=== PATIENT | male | born 1950 | race Native Hawaiian/Other Pacific Islander ===

== ENCOUNTER 2024-07-16 18:13 | Inpatient (IN) | payer MEDICARE, SELFPAY ==
--- NOTE | ~2024-07-16 | XR_ITS ---
Portable chest x-ray Comparison: None Clinical History: Dyspnea Findings: There is extensive hazy airspace disease of the left lung base. Right lung clear. Cardiom ediastinal silhouette is mildly prominent, with pacemaker device. Bones and soft tissues are unremark able. Impression: Left basilar pneumonia. Pacemaker device. Reviewed, dictated and finalized at [facility]. Impression: Left basilar pneumonia. Pacemaker device.
--- NOTE | ~2024-07-16 | CT_ITS ---
EXAMINATION: CT diagnostic chest wo con DATE: 07/17/2024 09:09 INDICATION: Pneumonia TECHNIQUE: Computed tomography (CT) of the chest was performed without intravenous contrast. Addition al 3D reconstructions utilizing coronal maximum intensity projection (MIP) were performed. Automated exposure control and iterative reconstruction technique were employed. The dose-length product was 22 7.31 mGy-cm. COMPARISON: None FINDINGS: Moderate upper lung predominant emphysema. There is consolidation without significant volume loss thr oughout the left lower lobe consistent with pneumonia. Mild dependent atelectasis in the right lower lobe. No pulmonary edema or pleural effusion. Heart size is normal. Small pericardial effusion. Ather osclerotic coronary artery calcified lesions and likely coronary artery stenting. Dual lead pacemaker /AICD seen with single atrial lead terminating at the atrial appendage and 2 ventricular leads termin ating near the apex of the right ventricle, one of which is presumably disconnected. Thoracic aorta i s normal in caliber. No pathologically enlarged thoracic lymphadenopathy. Bilateral gynecomastia. Par tially visualized abdominal aortic endoluminal stent grafting beginning near the level of the renal a rteries. Cholecystectomy clips the gallbladder fossa. There are bridging osteophytes at multiple leve ls in the lower thoracic and upper lumbar spine consistent with diffuse idiopathic skeletal hyperosto sis (DISH). IMPRESSION: 1. Left lower lobe pneumonia. 2. Small pericardial effusion. Reviewed, dictated and finalized at location B.
[2024-07-16 18:32] VITALS: BP 118/73; PULSE 111; RESP 20; TEMP 36.7; O2SAT 92
[2024-07-17] VITALS (61 sets, daily range): BP systolic 101–137; BP diastolic 64–85; PULSE 71–120; RESP 19–48; TEMP 36.2–39; O2SAT 81–100; BMI 23.0
--- NOTE | 2024-07-17 02:08 | ECG_ITS ---
Test Date: 2024-07-17 04:23:04 Measurements Intervals [place] Rate: 88 P: 49 HI: 203 QRS: 114 QRSD: 161 T: -9 QT: 417 QTc: 506 Interpretive Statements SINUS RHYTHM WITH OCCASIONAL VENTRICULAR PREMATURE COMPLEXES RIGHT BUNDLE BRANCH BLOCK LEFT POSTERIOR FASCICULAR BLOCK BASELINE ARTIFACT- I, II, III, AVR, AVL, V1-V4 ABNORMAL ECG No previous ECG available for comparison Electronically Signed On 07-17-2024 06:49:27 CDT by Harris Ray D.O.
[2024-07-17 02:37] LABS: Alveolar/Arterial O2 Gradient 121.3 mmHg; Base Excess ABG -5.4 mEq/l (+/-2.0); Fractional Inspired Oxygen 28 %; HCO3 ABG 15.6 mEq/l (22.0-26.0); Oxygen Content ABG 18.3 %vol (16.0-22.0); Oxygen Saturation ABG 90.7 % (95.0-100.0); PO2 ABG 53.2 mmHg (80.0-100.0); pH ABG 7.482 (7.350-7.450)
[2024-07-17 02:40] LABS: PCO2 ABG 21.3 mmHg (35.0-45.0)
[2024-07-17 02:41] LABS: Device NASAL CANNULA; Modified Allen's Test Pass; Oxyhemoglobin 86.8 % THb (90.0-100.0); Site Drawn LEFT RADIAL
[2024-07-17 02:42] LABS: Basophils Absolute Auto 0.1 K/mm3 (0.0-0.1); Basophils Percent Auto 0.4 % (0.2-1.2); Hematocrit 44.5 % (42.0-52.0); Hemoglobin 15.6 g/dL (14.0-18.0); Immature Granulocyte Absolute 0.32 K/mm3 (0.00-0.031); Immature Granulocyte Percent A 1.3 % (0-0.5); Lymphocytes Absolute Auto 0.56 K/mm3 (0.9-3.2); Lymphocytes Percent Auto 2.2 % (18.3-44.2); Mean Corpuscular HGB Conc 35.1 g/dl (32-36); Mean Corpuscular Hemoglobin 32.7 pg (26-34); Mean Corpuscular Volume 93.3 fl (80-100); Mean Platelet Volume 10.6 fl (7.4-10.4); Monocytes Absolute Auto 0.6 K/mm3 (0.1-0.6); Monocytes Percent Auto 2.4 % (2.6-8.5); Neutrophils Absolute Auto 23.5 K/mm3 (1.3-6.7); Neutrophils Percent Auto 93.7 % (45.5-73.1); Platelet Count Result 220 k/mm3 (150-375); Red Blood Count 4.77 M/mm3 (4.6-6.20); Red Cell Distribution Width 13.9 % (11.5-14.5); White Blood Count 25.1 K/mm3 (4.5-10.0)
[2024-07-17 02:58] LABS: INR 1.1; Prothrombin Time 14.7 Seconds (11.1-14.7)
[2024-07-17 02:59] LABS: Partial Thromboplastin Time 31.3 Seconds (22.3-36.8)
[2024-07-17 03:01] LABS: Lactic Acid Reflex 2.5 mmol/L (0.7-2.0)
[2024-07-17 03:15] LABS: Procalcitonin 43.1 ng/mL
[2024-07-17 03:18] LABS: Influenza A QL RT-PCR Negative (Negative); Influenza B QL RT-PCR Negative (Negative); RSV RNA, RT-PCR Negative (Negative); SARS-CoV-2 RNA PCR Negative (Negative)
--- NOTE | 2024-07-17 03:29 | ED.GENADULT ---
HPI - General Adult General Chief complaint: Shortness of Breath/Dyspnea Stated complaint: fever, sob, not eating Time Seen by Provider: 07/17/24 01:57 History of Present Illness HPI narrative: patient is a 74-year-old gentleman who presents emergency department with chief complaint of shortness of breath. The patient has prior history of COPD is not on home oxygen of a for the last week has been feeling sick patient has had decreased appetite eyes has had some loose bowel movements and a cough. Patient was 88% whenever came in from triage Related Data Allergies Allergy/AdvReac Type Severity Reaction Status Date / Time No Known Allergies Allergy Unknown Verified 07/16/24 18:41 NKDA Allergy Unknown Unknown Uncoded 07/16/24 18:41 NKFA Allergy Unknown Unknown Uncoded 07/16/24 18:41 Review of Systems Review of Systems: A 10 system review of systems was completed on the patient and is negative except for what is stated in the HPI. Nursing and ancillary documentation was reviewed. PMFSH Social History Social History Alcohol intake: current Exam Narrative: GENERAL: Ill-appearing, well-nourished, and in no acute distress. HEAD: Normocephalic, atraumatic. EYES: PERRLA and EOMI. ENT: Nares clear, no rhinorrhea or epistaxis. Mucous membranes moist. NECK: Supple. CHEST: rhonchi to auscultation. No respiratory distress. HEART: Regular rate and rhythm. No murmur heard. Normal peripheral pulses. ABDOMEN: Soft, nontender, nondistended, normal active bowel sounds. EXTREMITIES: Normal range of motion. No edema. SKIN: Warm, dry, no rash. NEURO: No focal deficits. Alert and oriented x3. PSYCH: Normal mood and affect. Course Vital Signs Vital signs: Vital Signs Temperature 36.7 C 07/16/24 18:32 Pulse Rate 111 H 07/16/24 18:32 Respiratory Rate 20 07/16/24 18:32 Blood Pressure 118/73 07/16/24 18:32 Pulse Oximetry 92 07/16/24 18:32 Oxygen Delivery Nasal Cannula 07/16/24 18:32 Oxygen Flow Rate 3 07/16/24 18:32 Temperature 36.5 C 07/17/24 02:00 Pulse Rate 94 07/17/24 02:02 Respiratory Rate 39 H 07/17/24 02:00 Blood Pressure 137/83 07/17/24 02:00 Pulse Oximetry 90 07/17/24 04:12 Oxygen Delivery Non-Rebreather Mask 07/17/24 04:12 Oxygen Flow Rate 10 07/17/24 04:12 Medical Decision Making MDM Narrative Medical decision making narrative: differential diagnosis includes pneumonia, viral illness, sepsis laboratory studies showed a white count of 25.1 lactic acid was slightly elevated at 2.5 COVID flu RSV are negative procalcitonin is 43.1 blood cultures were obtained the patient was started on Rocephin Zithromax as chest x-ray did show a left-sided infiltrate Vital Signs Vital Signs: Vital Signs Temperature 36.7 C 07/16/24 18:32 Pulse Rate 111 H 07/16/24 18:32 Respiratory Rate 20 07/16/24 18:32 Blood Pressure 118/73 07/16/24 18:32 Pulse Oximetry 92 07/16/24 18:32 Oxygen Delivery Nasal Cannula 07/16/24 18:32 Oxygen Flow Rate 3 07/16/24 18:32 Temperature 36.5 C 07/17/24 02:00 Pulse Rate 94 07/17/24 02:02 Respiratory Rate 39 H 07/17/24 02:00 Blood Pressure 137/83 07/17/24 02:00 Pulse Oximetry 90 07/17/24 04:12 Oxygen Delivery Non-Rebreather Mask 07/17/24 04:12 Oxygen Flow Rate 10 07/17/24 04:12 Lab Data 07/17/24 02:30 07/17/24 03:30 Labs: Lab Results 07/17/24 07/17/24 Range/Units 02:30 03:30 WBC 25.1 H (4.5-10.0) K/mm3 RBC 4.77 (4.6-6.20) M/mm3 Hgb 15.6 (14.0-18.0) g/dL Hct 44.5 (42.0-52.0) % MCV 93.3 (80-100) fl MCH 32.7 (26-34) pg MCHC 35.1 (32-36) g/dl RDW 13.9 (11.5-14.5) % Plt Count 220 (150-375) k/mm3 MPV 10.6 H (7.4-10.4) fl Immature Gran % (Auto) 1.3 H (0-0.5) % Neut % (Auto) 93.7 H (45.5-73.1) % Lymph % (Auto) 2.2 L (18.3-44.2) % [place] % (
[2024-07-17 03:46] LABS: Alanine Aminotransferase 55 U/L (6-50); Albumin Level 3.9 g/dL (3.5-5.1); Alkaline Phosphatase 118 U/L (38-126); Anion Gap 16 mmol/L (4-12); Aspartate Amino Transferase 98 U/L (17-59); Bilirubin,Total 1.7 mg/dL (0.2-1.3); Blood Urea Nitrogen 87 mg/dL (9-20); Calcium 8.8 mg/dL (8.4-10.2); Carbon Dioxide 19 mmol/L (22-30); Chloride 100 mmol/L (98-107); Estimated CRCL calculation 16 ml/min; Estimated Glomerular Filt Rate 15; Glucose 121 mg/dL (65-110); Lipase 87 U/L (23-300); Magnesium 2.7 mg/dL (1.6-2.3); Potassium 4.1 mmol/L (3.4-5.0); Sodium 135 mmol/L (137-145)
[2024-07-17 04:06] LABS: NT Pro B Type Natriuretic Pept 25300 pg/mL (19.9-100)
[2024-07-17] MEDS: AZITHROMYCIN 500 MG/NS 250 ML 500 MG/250 ML BAG 250 MG IVPB (04:10)
[2024-07-17] MEDS: SODIUM CHLORIDE 0.9% IV 1,000 ML 999 ML IV CONT (04:11)
--- NOTE | 2024-07-17 05:32 | PC.NURSE ---
temp pascual placed at this time, ua sent to lab.
[2024-07-17 05:41] LABS: Reflex Lactic Acid Yes or No Add Lactic
[2024-07-17 05:50] LABS: Add Urine Microscopic? YES; Appearance Urine Cloudy (Clear); Bacteria Urine None Seen /hpf; Bilirubin Urine Negative (Negative); Blood Urine 2+ (Negative); Color Urine Dark Yellow (Yellow); Glucose Urine UA Negative (Negative); Ketones Urine Trace mg/dL (Negative); Leukocyte Esterase Ur Negative LEU/UL (Negative); Nitrate Urine Negative (Negative); Protein Urine 2+ mg/dL (Negative); RBC Urine 0-2 /hpf (0-2); Specific Grav Ur 1.018 (1.001-1.035); Squamous Epithelial Cell Urine Occasional /hpf (Few); WBC Urine 0-5 /hpf (0-3)
--- NOTE | 2024-07-17 06:00 | ECG_ITS ---
Test Date: 2024-07-17 06:05:29 Measurements Intervals [place] Rate: 86 P: 60 LA: 199 QRS: 124 QRSD: 162 T: -7 QT: 417 QTc: 501 Interpretive Statements SINUS RHYTHM RIGHT BUNDLE BRANCH BLOCK LEFT POSTERIOR FASCICULAR BLOCK BASELINE ARTIFACT- I, III, AVR, AVF, V1 ABNORMAL ECG Compared to ECG 07/17/2024 04:23:04 NO SIGNIFICANT CHANGE Electronically Signed On 07-17-2024 06:54:47 CDT by Harris Ray D.O.
[2024-07-17] MEDS: ACETAMINOPHEN 650 MG SUPPOSITORY RECTAL (06:06)
[2024-07-17 06:51] LABS: Lactic Acid 1.3 mmol/L (0.7-2.0)
[2024-07-17] MEDS: ASPIRIN 81 MG CHEWABLE TABLET PO (08:17)
[2024-07-17] MEDS: IPRATROPIUM 0.5 MG/ALBUTEROL SULFATE 2.5 MG AMPUL.NEB 3 ML INHALATION ×3 (09:45→20:37)
--- NOTE | 2024-07-17 10:06 | PC.NURSE ---
talked to [facility] for patient transfer. RN will call back with bed assignment.
--- NOTE | 2024-07-17 10:33 | PM.TDS ---
Transfer Discharge Sum: Prov Provider Date of admission: 07/17/24 09:11 Primary care physician: Gordon Hollis, Admitting clinician: Umu Linder MD Consults: 07/17/24 05:05 Consult to Physician Routine Comment: Consulting Provider: call circuit worker/MD group to consult: cardiology Reason for consultation: elevated troponin, CHF Has provider been notified: No Consult to Physician Routine Comment: Consulting Provider: call circuit worker/MD group to consult: nephrology Reason for consultation: JUNAID with creatinine 4.0 Has provider been notified: No 07/17/24 08:55 Consult to Physician Routine Comment: Consulting Provider: call circuit worker/MD group to consult: Dr. Daigle Reason for consultation: Elevated Troponin Has provider been notified: No Receiving physician/facility: DS: Admitting Diagnosis Discharge Date 07/17/2024 Admitting Diagnosis COPD, pneumonia DS: Discharge Diagnosis Discharge Diagnosis (1) Community acquired pneumonia: Code(s): J18.9 - Pneumonia, unspecified organism Status: Acute (2) Leukocytosis: Code(s): D72.829 - Elevated white blood cell count, unspecified Status: Acute (3) Acute hypoxic respiratory failure: Code(s): J96.01 - Acute respiratory failure with hypoxia Status: Acute (4) Elevated troponin: Code(s): R79.89 - Other specified abnormal findings of blood chemistry Status: Acute (5) JUNAID (acute kidney injury): Code(s): N17.9 - Acute kidney failure, unspecified Status: Acute Plan Patient is a 74-year-old presented to the emergency department complaining of shortness of breath. The history has been obtained from his Krysta since the patient is on BiPAP. For past 1 week patient has not been feeling well, not communicating, incoherent, blurry vision, eating less and not drinking well. Patient has extensive cardiac history, reconstruction of the aorta 2014 due to aneurysm, patient also has 9-10 stents, defibrillator which was exchanged in about a year ago. Patient follows up with the director sports at [facility]. Patient also recently started having gout and reduced his alcohol. Patient has underlying COPD. And stop smoking from 2014. denies any diabetes mellitus or kidney disease. Patient is currently on the BiPAP with a setting of 12 / 7, WBC 25.1, chest x-ray and CT showing left lobar pneumonia and small pericardial effusion. Currently patient is on ceftriaxone and Rocephin. Patient is not on any vasopressor. Patient has elevated temperature in spite of giving Tylenol. We believe the source of infection is from the pneumonia and the elevation of the troponin might be due to type 2 LA but still with extensive cardiac history we prefer patient needs to be under vascular surgeon/director sports. Also the wants Infectious Disease on board and prefers the patient to be transferred to [facility]. We agreed to the plan and [facility] accepted the patient. The accepting physician is Dr. Atwood. Patient also spoke to the director sports and he agrees to see him once he at [facility]. Transfer Discharge Sum: Med Medications Active and Home Medications: Active Medications Acetaminophen (Acetaminophen 325 Mg Tablet) 650 mg PO Q4H PRN PRN Reason: Mild Pain (1-3) or Fever Albuterol/Ipratropium (Ipratropium 0.5 Mg/Albuterol Sulfate 2.5 Mg Ampul.Neb 3 Ml) 3 ml INHALATION Q6HRT [facility] Last Admin: 07/17/24 09:45 Dose: 3 ml Aspirin (Aspirin 81 Mg Chewable Tablet) 81 mg PO DAILY@0800 [facility] Last Admin: 07/17/24 08:17 Dose: 81 mg Ceftriaxone Sodium (Rocephin 1 Gm/Ns 50 Ml) 1 gm in 50 mls @ 100 mls/hr IVPB Q24H DENISE Azithromycin (Zithromax) 500 mg in 250 mls @ 250 mls/hr IVPB Q24H DENISE Perflutren Lipid Microsphere (Perflutren Lipid Microspheres 1.5 Ml Vial Diluted To 10 Ml Total Volume) 0 ml IV PUSH ONCE PRN; Protocol PRN Reason: adequat
[2024-07-17 11:19] LABS: MRSA (PCR) DETECTED (NOT DETECTE)
--- NOTE | 2024-07-17 11:38 | ECG_ITS ---
Test Date: 2024-07-17 12:00:36 Measurements Intervals [place] Rate: P: 0 VT: 0 QRS: 0 QRSD: 0 T: 0 QT: 0 QTc: 0 Interpretive Statements ELECTRONIC ATRIAL PACEMAKER ELECTRONIC VENTRICULAR PACEMAKER WITH INHIBTION RIGHT BUNDLE BRANCH BLOCK LEFT POSTERIOR FASCICULAR BLOCK ABNORMAL ECG Compared to ECG 07/17/2024 06:05:29 ELECTRONIC ATRIAL PACEMAKER NOW PRESENT Electronically Signed On 07-17-2024 12:33:30 CDT by Harris Ray D.O.
[2024-07-17 11:40] LABS: Lactic Acid Reflex 1.2 mmol/L (0.7-2.0)
[2024-07-17 12:02] LABS: Troponin I 0.149 ng/mL (0.000-0.034)
--- NOTE | 2024-07-17 15:05 | ADMGEN ---
This patient, Valentín Dos Santos, was admitted to IMU Room 207-01. Patient/family oriented to hospital policies and general routines including ID bracelet, bed and alarms, visiting hours, pain management, procedures, bathroom and other care routines, personal items, smoking policy, room service/diet, and visiting hours. Information on how to activate the Rapid Response Team has been discussed. Patient/Family are encouraged to report perceived risks to care and to ask questions if they do not understand what they are told or what they should do.
--- NOTE | 2024-07-17 15:33 | PM.CNCAR ---
Assessment and Plan Assessment and plan (1) Coronary artery disease: Code(s): I25.10 - Atherosclerotic heart disease of [place] coronary artery without angina pectoris Status: Acute Assessment and Plan: History of coronary artery disease with previous stent placement and recent angiography demonstrating patency of those stents with no other significant stenosis. ASA has been started, home medication list is being faxed and high intensity statin should be resumed. (2) Cardiomyopathy: Code(s): I42.9 - Cardiomyopathy, unspecified Status: Acute Assessment and Plan: Per patient's 's report he has an EF of 30%. He does not appear to be in decompensated heart failure at this time. As above, awaiting medication list which should be reviewed when available and appropriate GDMT resumed when able (JUNAID on CKD - I was able to view a BMP from December of this year which showed SCr 2.11, BUN 34). (3) Community acquired pneumonia: Code(s): J18.9 - Pneumonia, unspecified organism Status: Acute Assessment and Plan: On abx. Management per hospitalist (4) Acute hypoxic respiratory failure: Code(s): J96.01 - Acute respiratory failure with hypoxia Status: Acute Assessment and Plan: Secondary to pneumonia. ABG with PO2 53.2. On BiPAP. (5) Elevated troponin: Code(s): R79.89 - Other specified abnormal findings of blood chemistry Status: Acute Assessment and Plan: 0.190, 0.180, and 0.149. Type II HI in the setting of hypoxic respiratory failure. This does not represent ACS. As above, recent assessment of his coronary arteries showing patent stents with no other significant disease. No further cardiac workup recommended in this regard. (6) JUNAID (acute kidney injury): Code(s): N17.9 - Acute kidney failure, unspecified Status: Acute (7) Aortic aneurysm: Code(s): I71.9 - Aortic aneurysm of unspecified site, without rupture Status: Acute Assessment and Plan: s/p EVAR History of Present Illness History of Present Illness Consult date/time: 07/17/24 15:33 Requesting physician: Zion Davis MD Consult reason: Other (elevated troponin) Reason For Visit: Acute Hypoxic Resp Failure/Leukocytosis/PN/JUNAID/Lolita Narrative: Valentín Case is a 74 year old male with coronary artery disease, cardiomyopathy, abdominal aortic aneurysm status post EVAR at [facility], and pacemaker/ICD. He receives his cardiac care at [facility] with Dr. Phan. He comes to the hospital because of dizziness, weakness, loss of appetite, and shortness of breath. He is on BiPAP currently so most of the history was obtained from the medical record and his who is at the bedside. Cardiology has been asked to see him because of elevated troponin levels. Patient does endorse chest pain which has been ongoing for several days. His troponin levels are elevated at 0.190, 0.180, and 0.149. He underwent a left heart catheterization in February of this year which showed patent stents in the LAD and RCA with non hemodynamically significant stenosis in the RCA and LAD by IFR. In the emergency department he was placed on BiPAP because of respiratory failure secondary to pneumonia and underlying COPD. He is currently stable on BiPAP in the IMU awaiting transfer to [facility]. Review of Systems Review of Systems: All systems reviewed & are unremarkable except as noted in HPI and below PMFSH Social History Social History Alcohol intake: current Meds Home Medications and Allergies Allergies Allergy/AdvReac Type Severity Reaction Status Date / Time No Known Allergies Allergy Unknown Verified 07/16/24 18:41 NKDA Allergy Unknown Unknown Uncoded 07/16/24 18:41 NKFA Allergy Unknown Unknown Uncoded 07/16/24 18:41 Vital Signs Vital Signs - 24 hr 07/16/24 18:32 07/17/24 02:00 0
--- NOTE | 2024-07-17 15:42 | PM.CNNEP ---
Assessment and Plan Assessment and plan (1) JUNAID (acute kidney injury): Code(s): N17.9 - Acute kidney failure, unspecified Status: Acute Assessment and Plan: etiology? infection/early sepsis (pneumonia) pre-renal factors/insensible losses (due to fevers) hypoxia cardiac issues medications (Entresto) other? check renal ultrasound, CPK, and urine studies given #2, check serologies as well consider trial of gentle IVFs follow repeat labs and UOP (2) Chronic kidney disease, stage IV (severe): Code(s): N18.4 - Chronic kidney disease, stage 4 (severe) Status: Chronic Assessment and Plan: present as far back as 2020 baseline creatinine runs ~ 2.0 - 2.5mg/dl in the last year or so this causes him to fluctuate between CKD stage 3b and stage 4 presumably due to his significant vascular disease (CAD + cardiomyopathy + PAD/PVD + hyperlipidemia + AAA) and hypertension (3) Acute hypoxic respiratory failure: Code(s): J96.01 - Acute respiratory failure with hypoxia Status: Acute Assessment and Plan: due to pneumonia likely complicated by history of COPD BiPAP support PRN supplemental oxygen nebulizer treatments Pulmonary consulted follow respiratory status (4) Sepsis: Code(s): A41.9 - Sepsis, unspecified organism Status: Acute Assessment and Plan: as noted by fevers, elevated WBC, hypoxia, and mild lactic acidosis as well as elevated procalcitonin presumed source = pneumonia follow culture date follow trend of hemodynamics on antibiotics (5) Community acquired pneumonia: Code(s): J18.9 - Pneumonia, unspecified organism Status: Acute Assessment and Plan: as noted by admission imaging follow culture data on broad spectrum antibiotics (6) Ischemic cardiomyopathy: Code(s): I25.5 - Ischemic cardiomyopathy Status: Chronic Assessment and Plan: last Echo (January 2024) with noted EF ~ 45% (review of Epic records) left ventriculogram on cardiac cath (February 2024) also with EF ~ 45% (review of Epic records) follows with [facility] appears compensated at this time Cardiology following (7) Hypertension: Code(s): I10 - Essential (primary) hypertension Status: Chronic Assessment and Plan: reasonable control at this time follow trend of hemodynamics Greater than 20 minutes was spent in review of his extensive records/procedures/interventions from [facility], [facility], and [facility] Epic system along with discussion with the patient and his at bedside regarding his fairly complex medical history including his renal dysfunction which apparently the patient nor his were aware of. I will continue to follow the patient with you while he remains hospitalized and make further recommendations as deemed necessary. Thank you for allowing me to participate in the care of this patient. History of Present Illness Reason for Consult Consult date: 07/17/24 Reason for consult: acute renal failure (on chronic kidney disease) Chief Complaint Chief complaint: Acute Hypoxic Resp Failure/Leukocytosis/PN/JUNAID/Lolita History of Present Illness Narrative: A great majority of the information that I have obtained is from review of the electronic medical records and discussion with the other physicians/nurses involved in the patient's care along with his at bedside as it is difficult to get a full and complete history from the patient since he is on BiPAP therapy. The patient is a 74-year-old male with an extensive past medical history as outlined below who presented to [facility] Emergency room with several complaints including shortness of breath, weakness/fatigue, blurry vision, and poor oral intake. The patient reports the symptoms have been going on for the last week if not longer and seems to have progressively worsened in that time frame. Given these o
--- NOTE | 2024-07-17 15:42 | P.CONNP_ITS ---
Assessment and Plan Assessment and plan (1) JUNAID (acute kidney injury): Code(s): N17.9 - Acute kidney failure, unspecified Status: Acute Assessment and Plan: * etiology? * infection/early sepsis (pneumonia) * pre-renal factors/insensible losses (due to fevers) * hypoxia * cardiac issues * medications (Entresto) * other? * check renal ultrasound, CPK, and urine studies * given #2, check serologies as well * consider trial of gentle IVFs * follow repeat labs and UOP (2) Chronic kidney disease, stage IV (severe): Code(s): N18.4 - Chronic kidney disease, stage 4 (severe) Status: Chronic Assessment and Plan: * present as far back as 2020 * baseline creatinine runs ~ 2.0 - 2.5mg/dl in the last year or so * this causes him to fluctuate between CKD stage 3b and stage 4 * presumably due to his significant vascular disease (CAD + cardiomyopathy + PAD/PVD + hyperlipidemia + AAA) and hypertension (3) Acute hypoxic respiratory failure: Code(s): J96.01 - Acute respiratory failure with hypoxia Status: Acute Assessment and Plan: * due to pneumonia * likely complicated by history of COPD * BiPAP support PRN * supplemental oxygen * nebulizer treatments * Pulmonary consulted * follow respiratory status (4) Sepsis: Code(s): A41.9 - Sepsis, unspecified organism Status: Acute Assessment and Plan: * as noted by fevers, elevated WBC, hypoxia, and mild lactic acidosis as well as elevated procalcitonin * presumed source = pneumonia * follow culture date * follow trend of hemodynamics * on antibiotics (5) Community acquired pneumonia: Code(s): J18.9 - Pneumonia, unspecified organism Status: Acute Assessment and Plan: * as noted by admission imaging * follow culture data * on broad spectrum antibiotics (6) Ischemic cardiomyopathy: Code(s): I25.5 - Ischemic cardiomyopathy Status: Chronic Assessment and Plan: * last Echo (January 2024) with noted EF ~ 45% (review of [facility] records) * left ventriculogram on cardiac cath (February 2024) also with EF ~ 45% (review of [facility] records) * follows with [facility] * appears compensated at this time * Cardiology following (7) Hypertension: Code(s): I10 - Essential (primary) hypertension Status: Chronic Assessment and Plan: * reasonable control at this time * follow trend of hemodynamics Greater than 20 minutes was spent in review of his extensive records/procedu res/interventions from [facility], [facility], and [facility] [place] system along with discussion with the patient and his at bedside regarding his fairly complex medical history including his renal dysfunction which apparently the patient nor his were aware of. I will continue to follow the patient with you while he remains hospitalized and make further recommendations as deemed necessary. Thank you for allowing me to participate in the care of this patient. History of Present Illness Reason for Consult Consult date: 07/17/24 Reason for consult: acute renal failure (on chronic kidney disease) Chief Complaint Chief complaint: Acute Hypoxic Resp Failure/Leukocytosis/PN/JUNAID/Lolita History of Present Illness Narrative: A great majority of the information that I have obtained is from review of the electronic medical records and discussion with the other physicians/nurses involved in the patient's care along with his at bedside as it is difficult to get a full and complete h
--- NOTE | 2024-07-17 15:57 | PM.IMHP ---
H&P: HPI History of Present Illness Date/Time: 07/17/24 15:57 Chief Complaint: SOB Narrative: Patient is a 74-year-old presented to the emergency department complaining of shortness of breath. The history has been obtained from his Krysta since the patient is on BiPAP. For past 1 week patient has not been feeling well, not communicating, incoherent, blurry vision, eating less and not drinking well. Patient has extensive cardiac history, reconstruction of the aorta 2014 due to aneurysm, patient also has 9-10 stents, defibrillator which was exchanged in about a year ago. Patient follows up with the oven stripper at [facility]. Patient also recently started having gout and reduced his alcohol. Patient has underlying COPD and stopped smoking from 2014. denies any diabetes mellitus or kidney disease. Patient is currently on the BiPAP with a setting of 12 / 7, WBC 25.1, chest x-ray and CT showing left lobar pneumonia and small pericardial effusion. Currently patient is on ceftriaxone and Rocephin. Patient is not on any vasopressor. Patient has elevated temperature in spite of giving Tylenol. We believe the source of infection is from the pneumonia and the elevation of the troponin might be due to type 2 CT but still with extensive cardiac history we prefer patient needs to be under vascular surgeon/oven stripper. Also the wants Infectious Disease on board and prefers the patient to be transferred to [facility]. We agreed to the plan and [facility] accepted the patient. The accepting physician is Dr. Atwood. Patient also spoke to the oven stripper and he agrees to see him once he is at [facility]. I called [facility] around 4:00 p.m. for any update and was informed still pending for bed. [facility] Past Medical History Medical History (Updated 07/18/24 @ 00:23 by Choco Fontenot MD) AAA (abdominal aortic aneurysm) COPD (chronic obstructive pulmonary disease) Coronary artery disease CVA (cerebral vascular accident) DJD (degenerative joint disease) GERD (gastroesophageal reflux disease) Hyperlipidemia Hypertension Hyperuricemia Hypothyroidism Ischemic cardiomyopathy Migraines PAD (peripheral artery disease) SVT (supraventricular tachycardia) Surgical History Surgical History (Updated 07/17/24 @ 23:17 by Choco Fontenot MD) S/P cholecystectomy S/P femoral-tibial bypass S/P implantation of automatic cardioverter/defibrillator (AICD) Status post endovascular aneurysm repair (EVAR) Family History Family History (Updated 07/17/24 @ 23:21 by Choco Fontenot MD) Mother Hypertension Heart disease Father Heart disease Hypertension COPD (chronic obstructive pulmonary disease) Social History Social History (Updated 07/17/24 @ 18:18 by Ernestina Valle RN) Smoking packs per day: 2 Smoking cigarettes per day: 40.0 Smoking status: Former smoker Tobacco type: cigarettes Smoking end date: 01/02/15 Alcohol intake: current Drinks per week: 1 Substance use: never Substance use type: does not use Do You Feel Safe in your Home?: Yes Lack of Transportation: No Lack of Food: Never True Current Housing: I Have Housing Concerned About Future Housing: No Difficulty Paying Gas/Electric Bills: No Difficulty Paying for Meds: No Currently Unemployed: No Education: Decline to Answer Difficulty w/ Childcare or Family Care: No Living arrangements: with family Gender identity (if verbalized by the patient): Male Sexual Orientation (if Verbalized by the Patient): Straight or Heterosexual Spiritual care concerns: No Meds Home Medications and Allergies Home Medications Medication Instructions Recorded Confirmed Type allopurinol 100 mg tablet 100 mg PO DAILY 07/17/24 07/17/24 History carvedilol 12.5 mg tablet 6.25 mg PO BID 07/17/24 07/17/24 History clopidogrel 75 mg tablet 75 mg PO DAILY 07/17/24 07/17/24 History
[2024-07-17 16:36] LABS: Lactic Acid Reflex 3.7 mmol/L (0.7-2.0)
[2024-07-17] MEDS: CEFEPIME 1 GM/NS 50 ML 1 GM/50 ML BAG IVPB (16:53)
[2024-07-17] MEDS: LINEZOLID 600 MG/300 ML 600 MG/300 ML SOLN 300 MG IVPB (17:25)
[2024-07-17 19:23] LABS: Reflex Lactic Acid Yes or No Add Lactic
[2024-07-17 20:13] LABS: Lactic Acid 1.8 mmol/L (0.7-2.0)
[2024-07-17] MEDS: HYDROcodone/acetaminophen (*CRX) 10-325 MG TABLET 1 TAB PO (22:01)
[2024-07-17] MEDS: FAMOTIDINE 20 MG TABLET PO (22:35)
[2024-07-17] MEDS: allopurinoL 100 MG TABLET PO (22:35)
[2024-07-17] MEDS: carvediloL 6.25 MG TABLET PO (22:35)
[2024-07-17] MEDS: CLOPIDOGREL BISULFATE 75 MG TABLET PO (22:35)
[2024-07-17] MEDS: MAGNESIUM OXIDE 400 MG TABLET PO (22:36)
--- NOTE | 2024-07-17 22:55 | PC.NURSE ---
07/17/244-Spoke with YAO Hutchison from the [facility] transfer center. AYO Hutchison. states that they do not have a bed available for transfer at this time.
[2024-07-18] VITALS: BP 98/64; PULSE 72; PULSE 73; RESP 22; TEMP 36.4; O2SAT 90
--- NOTE | 2024-07-18 00:28 | PC.NURSE ---
07/18/24 at AYO Bueno from the [facility] Transfer Center called and states that they have a bed available. Bed given was room 305-01 at [facility]. Phone number to call for report is .
[2024-07-18 01:15] LABS: Complement C3 151 mg/dL (88-165)
--- NOTE | 2024-07-18 01:26 | PC.NURSE ---
07/18/24 0125-Report given to AYO Peck. at [facility]. Pt to be transported to room 305-01.
--- NOTE | 2024-07-18 01:28 | PC.NURSE ---
07/18/24 at 0128-Called Pt's significant other Krysta Benavidez to update her with Pt's transfer and new room number at [facility]. No answer when called. Room information left on the voicemail.
[2024-07-18 01:31] VITALS: PULSE 73
[2024-07-18 01:38] VITALS: PULSE 74; RESP 24
[2024-07-18 01:38] LABS: Hepatitis B Surface Antigen Negative (Negative); Thyroid Stimulating Hormone Reflex 0.792 uIU/mL (0.465-4.68)
[2024-07-18] MEDS: IPRATROPIUM 0.5 MG/ALBUTEROL SULFATE 2.5 MG AMPUL.NEB 3 ML INHALATION (01:38)
[2024-07-18 01:55] LABS: Hepatitis B Surface Anti Res Negative
== END 2024-07-18 01:55 | disposition short-term general hospital (02) | DRG 871 ==
LOC: ANHED 07-17 03:34 → ANHIMU 07-17 06:45
PROVIDERS: Internal Medicine Nephrology; Admitting Provider Internal Medicine; Emergency Provider Emergency Medicine; PCP Internal Medicine; Visit Provider General Practice
DX: A41.9 Sepsis, unspecified organism (principal); I21.A1 Myocardial infarction type 2; J18.9 Pneumonia, unspecified organism; J96.01 Acute respiratory failure with hypoxia; J44.0 Chronic obstructive pulmonary disease with (acute) lower respiratory infection; N17.9 Acute kidney failure, unspecified; N18.4 Chronic kidney disease, stage 4 (severe); I12.9 Hypertensive chronic kidney disease with stage 1 through stage 4 chronic kidney disease, or unspecified chronic kidney disease; I25.10 Atherosclerotic heart disease of native coronary artery without angina pectoris; I25.5 Ischemic cardiomyopathy; I73.9 Peripheral vascular disease, unspecified; E78.5 Hyperlipidemia, unspecified; E03.9 Hypothyroidism, unspecified; K21.9 Gastro-esophageal reflux disease without esophagitis; M10.9 Gout, unspecified; M19.90 Unspecified osteoarthritis, unspecified site; Z20.822 Contact with and (suspected) exposure to COVID-19; Z79.02 Long term (current) use of antithrombotics/antiplatelets; Z95.810 Presence of automatic (implantable) cardiac defibrillator; Z95.5 Presence of coronary angioplasty implant and graft; Z86.73 Personal history of transient ischemic attack (TIA), and cerebral infarction without residual deficits; Z87.891 Personal history of nicotine dependence
CPT/HCPCS: 36415; 36600; 71045; 71250; 80053; 81001; 82805; 82810; 83605; 83690; 83735; 83880; 84145; 84443; 84484; 85025; 85610; 85730; 86160; 86706; 87040; 87340; 87637; 87641; 93005; 94002; 94640; 96365; 96375; 99285; A9270; G0378; J0456; J0692; J0696; J2020; J7030